=== PATIENT | male | born 1970 | race Caucasian/White ===

== ENCOUNTER 2021-07-18 10:08 | Outpatient (REF) | payer OTHER, SELFPAY ==
[2021-07-18 13:55] LABS: MANUAL DIFF FLAG NO
[2021-07-18 14:02] LABS: Basophils Percent Auto 0.4 % (0-2); Eosinophils Absolute Auto 0.1 X10*3/uL (0.0-0.4); Eosinophils Percent Auto 1.1 % (0-4); Hematocrit 47.9 % (42.0-52.0); Hemoglobin 15.9 g/dl (14.0-18.0); Imm Gran Abs Auto 0.02 X10*3/uL (0.00-0.03); Imm Gran Pct Auto 0.4 % (0.0-0.4); Lymphocytes Absolute Auto 1.3 X10*3/uL (1.2-4.9); Lymphocytes Percent Auto 24.2 % (20-40); Mean Corpuscular HGB Conc 33.2 g/dl (31.0-36.0); Mean Corpuscular Hemoglobin 27.7 pg (27.0-33.0); Mean Corpuscular Volume 83.3 fL (80.0-98.0); Mean Platelet Volume 9.5 fL (9.4-12.4); Monocytes Absolute Auto 0.4 X10*3/uL (0.1-1.2); Neutrophils Absolute Auto 3.5 x10*3/uL (2.0-8.3); Neutrophils Percent Auto 65.9 % (45-73); Platelet Count 216 X10*3/uL (160-400); Red Blood Count 5.75 X10*6/uL (4.60-5.80); Red Cell Distribution Width 12.7 % (11.0-16.0); White Blood Count 5.4 X10*3/uL (4.8-10.8)
[2021-07-18 14:45] LABS: Alanine Aminotransferase 21 U/L (0-40); Albumin Level 4.2 g/dL (3.5-5.0); Alkaline Phosphatase 74 U/L (39-117); Anion Gap 13 (12-20); Aspartate Amino Transferase 18 U/L (5-37); Bilirubin Total 0.5 mg/dL (0.0-1.0); Blood Urea Nitrogen 17 mg/dL (9-16); Calcium 8.9 mg/dL (8.4-10.2); Carbon Dioxide 24 mmol/L (22-29); Chloride 107 mmol/L (96-108); Cholesterol 223 mg/dL; Estimated Glomerular Filt Rate > 60; Glucose Fasting 109 mg/dL (60-99); HDL Cholesterol 43 mg/dL; LDL Cholesterol Calculated 146 mg/dl; Sodium 140 mmol/L (135-145); Triglycerides 171 mg/dL
[2021-07-18 14:57] LABS: Prostate Specific Antigen 0.54 ng/mL (<0.05-4.0); Vitamin D 25-OH Total 25.4 ng/mL (>30)
== END 2021-07-18 10:09 | disposition home or self-care (01) ==
LOC: HO.MANLDS 10:08
PROVIDERS: PCP Internal Medicine; Visit Provider Internal Medicine
DX: Z00.00 Encounter for general adult medical examination without abnormal findings (principal); Z12.5 Encounter for screening for malignant neoplasm of prostate
CPT/HCPCS: 36415; 80053; 80061; 82306; 84153; 85025

== ENCOUNTER 2022-08-14 09:37 | Outpatient (REF) | payer OTHER, SELFPAY ==
[2022-08-14 11:26] LABS: MANUAL DIFF FLAG NO
[2022-08-14 11:38] LABS: Basophils Percent Auto 0.4 % (0-2); Eosinophils Percent Auto 0.4 % (0-4); Hematocrit 47.3 % (42.0-52.0); Hemoglobin 16.2 g/dl (14.0-18.0); Imm Gran Abs Auto 0.04 X10*3/uL (0.00-0.03); Imm Gran Pct Auto 0.6 % (0.0-0.4); Lymphocytes Absolute Auto 1.6 X10*3/uL (1.2-4.9); Lymphocytes Percent Auto 22.8 % (20-40); Mean Corpuscular HGB Conc 34.2 g/dl (31.0-36.0); Mean Corpuscular Hemoglobin 28.1 pg (27.0-33.0); Mean Corpuscular Volume 82.1 fL (80.0-98.0); Mean Platelet Volume 8.9 fL (9.4-12.4); Monocytes Absolute Auto 0.5 X10*3/uL (0.1-1.2); Monocytes Percent Auto 7.8 % (2-11); Neutrophils Absolute Auto 4.7 x10*3/uL (2.0-8.3); Platelet Count 238 X10*3/uL (160-400); Red Blood Count 5.76 X10*6/uL (4.60-5.80); Red Cell Distribution Width 12.7 % (11.0-16.0); White Blood Count 6.9 X10*3/uL (4.8-10.8)
[2022-08-14 14:47] LABS: Alanine Aminotransferase 23 U/L (0-40); Albumin Level 4.3 g/dL (3.5-5.0); Alkaline Phosphatase 81 U/L (39-117); Anion Gap 10 (12-20); Aspartate Amino Transferase 16 U/L (5-37); Bilirubin Total 0.8 mg/dL (0.0-1.0); Blood Urea Nitrogen 27 mg/dL (9-16); Calcium 9.2 mg/dL (8.4-10.2); Carbon Dioxide 29 mmol/L (22-29); Chloride 105 mmol/L (96-108); Cholesterol 228 mg/dL; Estimated Glomerular Filt Rate > 60; Glucose Random 116 mg/dL (60-115); HDL Cholesterol 46 mg/dL; LDL Cholesterol Calculated 152 mg/dl; Potassium 4.3 mmol/L (3.3-5.1); Prostate Specific Antigen 0.59 ng/mL (<0.05-4.0); Sodium 140 mmol/L (135-145); Triglycerides 151 mg/dL; Vitamin D 25-OH Total 28.9 ng/mL (>30)
== END 2022-08-14 09:38 | disposition home or self-care (01) ==
LOC: HO.MANLDS 09:37
PROVIDERS: Visit Provider Internal Medicine
DX: Z00.00 Encounter for general adult medical examination without abnormal findings (principal); Z12.5 Encounter for screening for malignant neoplasm of prostate
CPT/HCPCS: 36415; 80053; 80061; 82306; 84153; 85025

== ENCOUNTER 2022-08-17 09:44 | Outpatient (REF) | payer OTHER, SELFPAY ==
[2022-08-17 11:36] LABS: Estimated Average Glucose 111 mg/dL; Hemoglobin A1C 151.1313 umol/L; Hemoglobin A1c % 5.5 %
== END 2022-08-17 09:45 | disposition home or self-care (01) ==
LOC: HO.MANLDS 09:44
PROVIDERS: Visit Provider Internal Medicine
DX: R73.9 Hyperglycemia, unspecified (principal)
CPT/HCPCS: 36415; 83036

== ENCOUNTER 2023-10-22 07:53 | Outpatient (REF) | payer OTHER, SELFPAY ==
[2023-10-22 13:20] LABS: MANUAL DIFF FLAG NO
[2023-10-22 13:22] LABS: Basophils Percent Auto 0.4 % (0-2); Eosinophils Absolute Auto 0.1 X10*3/uL (0.0-0.4); Eosinophils Percent Auto 1.3 % (0-4); Hematocrit 45.8 % (42.0-52.0); Hemoglobin 15.4 g/dl (14.0-18.0); Imm Gran Abs Auto 0.02 X10*3/uL (0.00-0.03); Imm Gran Pct Auto 0.3 % (0.0-0.4); Lymphocytes Absolute Auto 1.4 X10*3/uL (1.2-4.9); Lymphocytes Percent Auto 18.4 % (20-40); Mean Corpuscular HGB Conc 33.6 g/dl (31.0-36.0); Mean Corpuscular Hemoglobin 27.3 pg (27.0-33.0); Mean Corpuscular Volume 81.2 fL (80.0-98.0); Mean Platelet Volume 9.5 fL (9.4-12.4); Monocytes Absolute Auto 0.6 X10*3/uL (0.1-1.2); Monocytes Percent Auto 7.4 % (2-11); Neutrophils Absolute Auto 5.6 x10*3/uL (2.0-8.3); Neutrophils Percent Auto 72.2 % (45-73); Platelet Count 247 X10*3/uL (160-400); Red Blood Count 5.64 X10*6/uL (4.60-5.80); Red Cell Distribution Width 13.2 % (11.0-16.0); White Blood Count 7.7 X10*3/uL (4.8-10.8)
[2023-10-22 14:20] LABS: Alanine Aminotransferase 23 U/L (0-40); Albumin Level 4.2 g/dL (3.5-5.0); Alkaline Phosphatase 83 U/L (39-117); Anion Gap 11 (12-20); Aspartate Amino Transferase 17 U/L (5-37); Bilirubin Total 0.6 mg/dL (0.0-1.0); Blood Urea Nitrogen 19 mg/dL (9-16); Calcium 9.7 mg/dL (8.4-10.2); Carbon Dioxide 29 mmol/L (22-29); Chloride 106 mmol/L (96-108); Cholesterol 193 mg/dL (<200); Estimated Glomerular Filt Rate > 60; Glucose Random 122 mg/dL (60-115); HDL Cholesterol 44 mg/dL (>40); LDL Cholesterol Calculated 121 mg/dL (<100); Potassium 4.1 mmol/L (3.3-5.1); Sodium 142 mmol/L (135-145); Total Protein 7.3 g/dL (6.5-8.0); Triglycerides 140 mg/dL (<150)
[2023-10-22 14:26] LABS: Vitamin D 25-OH Total 28.4 ng/mL (>30)
[2023-10-22 14:31] LABS: Prostate Specific Antigen 0.58 ng/mL (<0.05-4.0)
== END 2023-10-22 07:54 | disposition home or self-care (01) ==
LOC: HO.MANLDS 07:53
PROVIDERS: Visit Provider Internal Medicine
DX: Z00.00 Encounter for general adult medical examination without abnormal findings (principal); Z12.5 Encounter for screening for malignant neoplasm of prostate
CPT/HCPCS: 36415; 80053; 80061; 82306; 84153; 85025

== ENCOUNTER 2025-02-23 12:04 | Outpatient (REF) | payer OTHER, SELFPAY ==
--- OUTSIDE RECORDS SUMMARY | 2025-02-23 13:10 | XMS_ITS | Continuity of Care Document ---
Author Organization [facility], [facility] Address [address] [place] [address] [place] [address] Assessment No assessment recorded. Plan of Treatment Reminders Order Date Submit Date Provider Last Modified By Organization Details Last Modified Time Details Appointments ANNUAL EXAM 2024 11:30A M DR MIRANDA Not available Not available Not available ANNUAL EXAM 2025 10:00A M DR MIRANDA Not available Not available Not available Lab CMP, serum or plasma 2024 025 [facility], [address] [place] [address], [id number], 02/23/2025 11:55:22 PSA, serum or plasma 2024 025 [facility], [address] [place] [address], [id number], 02/23/2025 11:55:23 lipid panel, blood 2024 025 [facility], [address] [place] [address], [id number], 02/23/2025 11:55:22 CBC w/ auto diff 2024 025 [facility], [address] [place] [address], [id number], 02/23/2025 11:55:23 testost erone, total, serum 2024 025 [facility], [address] [place] [address], [id number], 02/23/2025 11:55:23 Referral None recorde d. Procedures None recorde d. Surgeries None recorde d. Imaging home sleep study 2024 025 [facility], [address], [place], [id number], 02/23/2025 11:51:53 Medication Orders sildena bryanna 50 mg tablet 2024 025 [facility], [address] [place], [id number], 02/23/2025 11:52:44 Patient TargetsNo targets recorded. Patient InstructionsNo instructions recorded. Reason for Referral None Reported. 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 Contreras Miranda DO [address] [place] [address], [id number], [facility] 4 16:17:10 Fatigue 04713735 Active 2024 Contreras Miranda DO [address] [place] [address], [id number], [facility] 5 11:46:13 Suspected respirato ry disease 422230428 Active 2024 Contreras Miranda DO [address] [place] [address], [id number], [facility] 5 11:47:52 Secondary erectile dysfuncti on 848984619 Active 2024 Contreras Miranda, DO [address], [place], [address], [facility] 5 11:50:24 Notes:Some problems listed i n Documents: #[id number], #[id number], #[id number], #[id number] could not be added to this patient's chart. Please review these documents and add these problems to the patient's chart manually as needed. Problem Notes None recorded. Medical Equipment None Reported. Allergies Allergen ID Allergen Name Allergen Category Reaction Reaction Severity Criticality Documentation Date Start Date Code Code System Note Provider Name and Address Organization Details Recorded Time 2213 penicilli n V Not available Not available Not available Not available 04/29/2018 7984 Rx[facility] 8 08:32:04 Medications Name Sig Start Date Stop Date Status Note LastModified by Organization Details LastModified Time losartan 50 mg tablet TAKE 1 TABLET EVERY DAY BY ORAL ROUTE FOR 30 DAYS. 11/21 completed Not Available Not Available Not Available sildenafil 50 mg tablet Take 1 tablet every day by oral route for 30 days. 2024 active Not Available Not Available Not Avai lable betamethaso ne, augmented 0.05 % lotion Apply 1 applicati on every day by topical route for 30 days. 11/21 completed Not Available Not Available Not Available losartan 25 mg tablet TAKE 1 TABLET EVERY DAY BY ORAL ROUTE FOR 30 DAYS. 11/21 completed Not Available Not Available Not Available hydrochloro thiazide 12.5 mg capsule TAKE 1 CAPSULE BY MOUTH EVERY DAY 08/03 completed Not Available Not Available Not Available hydrochloro thiazide 25 mg tablet Take 1 tablet every day by oral route for 30 days. 2024 active Not Available Not Available Not Avai lable losartan 100 mg tablet TAKE 1 TABLET BY MOUTH EVERY DAY 2024 active Not Available Not Available Not Avai lable fluocinolon e 0.01 % scalp oil and shower cap 11/15 completed Not Available Not Available Not Available losartan 100 mg-hydrochl orothiazide 12.5 mg tablet TAKE 1 TABLET BY MOUTH EVERY DAY FOR 30 DAYS 02/19 completed Not Available Not Available Not Available Afluria 3313-3743 (PF) 45 mcg(15 mcg x 3)/0.5 mL intramuscul ar syringe 04/29 completed Not Available Not Available Not Available Afluria Qd 2018- (36 mos up)(PF)60 mcg (15 mcg x4)/0.5 mL IM syringe 11/09 completed Not Available Not Available Not Available Vitals Date Recorded Body weight Body mass index (BMI) Body height Heart rate Oxygen saturation Oxygen saturation in Arterial blood by Pulse oximetry Systolic blood pressure Diastolic blood pressure Provider Name and Address Organization Details Last Updated DateTime 5 382692. 51 g 29.3 kg/m2 185.42 cm 97 /min 97 % 97 % 138 mm[Hg] 80 mm[Hg] Chetna Delarosa [facility] 5 11:36:56 Social History Question Answer Notes LastModified by Sprio Details LastModified Time Tobacco Smoking Status Never Smoker Not Available [facility] 06/28/2020 03:36:23 What Is Your Level Of Caffeine Consumption? None [id number] Information not available 06/28/2020 What Was The Date Of Your Most Recent Tobacco Screening? 02/23/2025 Information not available 02/23/2025 Sex: Unknown Functional Status Question Answer Note LastModified by Sprio Details LastModified Time What is your level of alcohol consumption? Occasional [id number] Information not available 06/28/2020 What is your exercise level? Occasional [id number] Information not available 06/28/2020 Mental Status None recorded. Family History Nothing Reported. Medical History No medical history recorded. Immunizations Vaccine Type Date Status Note Provider Nam e and Address Organization Details Recorded Time Influenza, split virus, quadrivalent, preservative 1 completed Fatemeh Gencarelle chelsi [facility] 08/14/2022 08:54:12 Influenza, split virus, quadrivalent, preservative 1 completed Fatemeh Gencarellmaggie gagnon [facility] 08/14/2022 08:54:12 COVID-19, mRNA, LNP-S, PF, 30 mcg/0.3 mL dose 10/25/202 1 completed Fatemeh Gencarelle null, [facility] 08/14/2022 08:54:13 Tdap 1 completed Not Available [facility] 02/18/2022 23:19:50 COVID-19, mRNA, LNP-S, PF, 30 mcg/0.3 mL dose 1 completed Fatemeh Gencarelle [facility], [facility] 08/14/2022 08:54:13 influenza, unspecified formulation 2 completed Fatemeh Gencarelle null, [facility] 08/14/2022 08:54:12 Influenza, split virus, quadrivalent, preservative 8 completed Fatemeh Gencarelle [facility], [facility] 08/14/2022 08:54:12 Influenza, split virus, quadrivalent, preservative 9 completed Fatemeh Gencarelle [facility], [facility] 08/14/2022 08:54:13 Influenza, split virus, quadrivalent, preservative 0 completed Fatemeh Gencarelle [facility], [facility] 08/14/2022 08:54:12 COVID-19 vaccine, vector-nr, rS-ChAdOx1, PF, 0.5 mL 1 completed Fatemeh Gencarelle [facility], [facility] 08/14/2022 08:54:12 Past Encounters Encounter ID Performer Location Encounter Start Date Encounter Closed Date Diagnosis/Indication Diagnosis SNOMED-CT Code Diagnosis ICD10 Code Diagnosis Note [id number] Contreras Miranda [facility] [address],[place] [address] 02/23/2025 11:27:37 02/23/2025 11:58:01 Active or passive immunization 404276294 Z23 utd Essential hypertension 22767919 I10 we will add hctz to the dose of 100mg losartan Hyperglycemia 85255166 R 73.9 non issue now lab good Preventive procedure 169 990442 Z00.00 doing well except for bp will increase hctz he eats a lot of salt.... Fatigue 00823853 R53.83 Suspected respiratory disease 046798410 R29.818 Secondary erectile dysfunction 773065239 N52.9 Health Concerns Section Related Observation LastModified by Organization Detai ls LastModified Time None Recorded Concern Status LastModified by Organization Details LastModified Time None Recorded Payers Encounter Date Sequence Insurance Name Policy Number Policy Jung Covered Member ID Jung Member ID Guarantor Name 02/23/2025 1 [facility] [id number] 01 Donnie Ivan [id number] Donnie Ivan Notes Date Note Type Note Provider Name and Address Organization Details Recorded Time 5 text/htm l Annual WellnessReported bypatient.Diet and Nutrition:healthy diet Fracture Risk:no history of fractures; no recent explained fracture; no sudden unexplained fractures; no previous musculoskeletal injuries Physical Activity:exercises on a regular basis; recent increase in physical activity; good physical condition Additional Lifestyle Factors:no tobacco use; no alcohol intake; stopped drinking alcohol Depression Risk:never feels sad, empty, or tearful; no loss of interest in activities; no significant changes in weight; no sleep disturbances or insomnia; no agitation; no loss of energy; no feelings of worthlessness or guilt; no thoughts of suicide; no history of depression; no history of mood disorders Hearing:no loss of hearing Vision:no vision problemsCare Management - DiabetesReported bypatient.Self Care:seeing eye doctor yearly for dilated eye exam; checking feet regularly; normal range of home blood sugars (in the low 100s); no side effects from medications Associated Symptoms:symptoms are usually well controlled; no fatigue; no dizziness; no excessive sweating; no headaches; no confusion; no increased thirst; no increased appetite; no increased urination; no blurred vision; no numbness of feet; no calluses on feetCare Management - HypertensionReported bypatient.Self Care:not under emotional stress Severity:symptoms are improving; does not interfere with daily activities Associated Symptoms:no dizziness; no lightheadedness; no chest pain; no shortness of breath; no palpitations; no edema; no calf muscle cramps; no blurred vision; no confusion; no headaches; no fatigue Contreras Miranda, DO [address] [place], [address], [facility] 02/23/2025 11:58:00
[2025-02-23 18:06] LABS: MANUAL DIFF FLAG NO
[2025-02-23 18:11] LABS: Hematocrit 44.3 % (42.0-52.0); Hemoglobin 15.7 g/dl (14.0-18.0); Imm Gran Abs Auto 0.03 X10*3/uL (0.00-0.03); Imm Gran Pct Auto 0.4 % (0.0-0.4); Lymphocytes Absolute Auto 1.2 X10*3/uL (1.2-4.9); Mean Corpuscular HGB Conc 35.4 g/dl (31.0-36.0); Mean Corpuscular Hemoglobin 28.8 pg (27.0-33.0); Mean Corpuscular Volume 81.1 fL (80.0-98.0); NRBC Abs Auto 0.000 X10*3/uL (0.0-0.012); NRBC Pct Auto 0.0 /100WBC (0.0-0.2); Platelet Count 238 X10*3/uL (160-400); Red Blood Count 5.46 X10*6/uL (4.60-5.80); White Blood Count 7.2 X10*3/uL (4.8-10.8)
[2025-02-23 18:30] LABS: Alanine Aminotransferase 26 U/L (0-40); Albumin Level 4.4 g/dL (3.5-5.0); Alkaline Phosphatase 77 U/L (39-117); Anion Gap 12 (12-20); Aspartate Amino Transferase 22 U/L (5-37); Blood Urea Nitrogen 16 mg/dL (9-16); Calcium 9.1 mg/dL (8.4-10.2); Carbon Dioxide 27 mmol/L (22-29); Chloride 103 mmol/L (96-108); Cholesterol 211 mg/dL (<200); Estimated Glomerular Filt Rate > 60; HDL Cholesterol 41 mg/dL (>40); Potassium 3.7 mmol/L (3.3-5.1); Sodium 138 mmol/L (135-145); Total Protein 7.0 g/dL (6.5-8.0); Triglycerides 204 mg/dL (<150)
[2025-02-23 18:52] LABS: Prostate Specific Antigen 0.64 ng/mL (<0.05-4.0)
== END 2025-02-23 12:05 | disposition home or self-care (01) ==
LOC: HO.MANLDS 12:04
PROVIDERS: Visit Provider Internal Medicine
DX: Z12.5 Encounter for screening for malignant neoplasm of prostate (principal); I10 Essential (primary) hypertension; R53.83 Other fatigue
CPT/HCPCS: 36415; 80053; 80061; 84153; 84403; 85025